=== PATIENT | female | born 1970 | race Caucasian/White ===

== ENCOUNTER → 2017-03-10 | Outpatient (CLI) | payer BC, OTHER | LOC: MAMMO 09:00 | PROVIDERS: ATTEND Family Medicine | DX: Z12.31 Encounter for screening mammogram for malignant neoplasm of breast (principal) | CPT/HCPCS: G0202; G0279 ==

== ENCOUNTER → 2017-03-24 | Outpatient (CLI) | payer OTHER ==
--- NOTE | 2017-03-24 15:24 | US ---
EXAM DESCRIPTION: Breast,Right CLINICAL HISTORY: 47 years Female, screening mammogram showed possible abnormality right breast with focal asymmetry 0.5 to 3 cm behind the nipple at or slightly below the posterior nipple line COMPARISON: March 10, 2017 FINDINGS: Real-time ultrasound right breast performed by me shows no solid, cystic, or worrisome abnormality. This patient has very dense breast tissue which is responsible for the perceived abnormality on the mammogram IMPRESSION: BIRAD CATEGORY: 1 NEGATIVE Electronically signed by: Geovany Meredith MD 03/24/2017 3:23 PM CDT Workstation: [id number]
== END | disposition home or self-care (01) ==
LOC: MAMMO 14:41
PROVIDERS: ATTEND Family Medicine
DX: R92.8 Other abnormal and inconclusive findings on diagnostic imaging of breast (principal)

== ENCOUNTER → 2017-06-23 | Outpatient (CLI) | payer OTHER | END | disposition home or self-care (01) | LOC: LAB.O 08:46 | PROVIDERS: ATTEND Family Medicine | DX: Z79.899 Other long term (current) drug therapy (principal) ==

== ENCOUNTER → 2018-02-25 | Outpatient (CLI) | payer OTHER ==
--- NOTE | 2018-02-25 15:03 | MRI ---
EXAM DESCRIPTION: Lumbar Spine w/o Contrast CLINICAL HISTORY: 48 years Female, LUMBAR SPINE PAIN COMPARISON: None available. TECHNIQUE: Multiplanar multiecho imaging of the lumbar spine was performed without intravenous contrast administration. FINDINGS: The normal lordotic curvature of the lumbar spine is well preserved. The vertebral body heights are well-maintained with no acute compression deformity. Multilevel intervertebral disc space narrowing is noted. The conus medullaris terminates at L1 vertebral body. The visualized spinal cord demonstrates no signal abnormality. L1-L2: Mild bilateral facet arthropathy. No canal stenosis or neural foraminal narrowing. L2-L3: Mild bilateral facet arthropathy. No canal stenosis or neural foraminal narrowing. L3-L4: Mild disc bulge and facet arthropathy. No canal stenosis. Mild right neural foraminal narrowing. L4-L5: Mild disc bulge and facet arthropathy. No canal stenosis. Mild bilateral neural foraminal narrowing. L5-S1: Mild disc bulge and facet arthropathy. No canal stenosis. Mild bilateral neural foraminal narrowing. The visualized prevertebral and paravertebral soft tissues appear unremarkable. IMPRESSION: Diffuse bilateral facet arthropathy throughout the lumbar spine. Mild bilateral neural foraminal narrowing is noted at L4-L5 and L5-S1 levels. Electronically signed by: Justo Javed MD 02/25/2018 3:02 PM CDT
== END ==
LOC: MRI 13:00
PROVIDERS: ATTEND Family Medicine
DX: M54.5 Low back pain (principal)

== ENCOUNTER → 2018-04-13 | Outpatient (CLI) | payer OTHER ==
--- NOTE | 2018-04-14 11:26 | MAM ---
EXAM DESCRIPTION: 3D Screening BILATERAL : Digital Mammography. CLINICAL HISTORY: 48 years Female SCREENING . No complaints. No personal history of breast cancer. Remote family history of breast cancer. Childbirth. IUD. Periods last frequent. Currently on HRT. Lifetime risk of developing breast cancer (Tyrer-Cuzick model) is 7.7 %. COMPARISON: Bilateral screening digital breast tomosynthesis 03/10/2017. Targeted right breast ultrasound 03/24/2017. TECHNIQUE: Bilateral CC and MLO projection full-field images, Digital tomosynthesis mammographic technique. Bilateral digital 2-D full-field MLO images. CAD not utilized. FINDINGS: The breast parenchymal density pattern is: Extremely dense breast tissue, which lowers the sensitivity of mammography. No skin thickening or nipple retraction. Bilateral solitary microcalcifications. No new focal, stellate mass or density, focal asymmetry , and no suspicious microcalcifications bilaterally. Stable mammograms compared to prior study. IMPRESSION: Benign exam BIRAD CATEGORY: 2 BENIGN FINDINGS RECOMMENDATIONS: FOLLOW UP: Routine digital bilateral screening, one year interval from March 2018. Written communication explaining the IMPRESSION and follow-up, will be mailed to the patient and referring health care provider. According to the [employer], yearly mammograms are recommended starting at age 40 and continuing as long as a woman is in good health. Any breast change noted on a breast self-exam should be reported promptly to the patient's healthcare provider. Breast MRI is recommended for women with an approximately 20-25% or greater lifetime risk of breast cancer, including women with a strong family history of breast or ovarian cancer and women who have been treated for Hodgkin's disease. A negative mammographic report should not delay tissue diagnosis in patients with significant clinical history or physical findings. Extremely dense breast tissue limits the sensitivity of digital mammography. Electronically signed by: Enrique Terry MD 04/14/2018 11:25 AM CDT
== END ==
LOC: MAMMO 10:30
PROVIDERS: ATTEND Family Medicine
DX: Z12.31 Encounter for screening mammogram for malignant neoplasm of breast (principal)

== ENCOUNTER → 2018-07-22 | Outpatient (CLI) | payer OTHER ==
--- NOTE | 2018-07-23 09:32 | MRI ---
EXAM: Brain w/wo Contrast CLINICAL HISTORY: HEADACHE COMPARISON STUDY: None. TECHNICAL: Multi-sequence, multiplanar pre and post-contrast MRI images were acquired through the brain. FINDINGS: Diffusion weighted scan shows no abnormal signal intensity suggesting acute ischemic event. There is no visible mass, mass effect, or hemorrhage. No identifiable infarct. The ventricles are non-dilated. No extra-axial fluid collection is present. Normal flow voids are identified. No abnormal enhancing lesion. Posterior fossa midline structures are normal. IMPRESSION: NEGATIVE MRI OF THE BRAIN WITHOUT AND WITH CONTRAST. Electronically signed by: Enrike King MD 07/23/2018 9:31 AM [facility]
== END ==
LOC: MRI 09:00
PROVIDERS: ATTEND Family Medicine
DX: G44.209 Tension-type headache, unspecified, not intractable (principal)

== ENCOUNTER → 2018-12-08 | Outpatient (CLI) | payer OTHER ==
--- NOTE | 2018-12-09 13:31 | MRI ---
EXAM DESCRIPTION: Knee,Left: MRI. CLINICAL HISTORY: 48 years Female KNEE PAIN COMPARISON: Radiograph left knee 12/07/2018.. Left TECHNIQUE: Multiplanar, high-field MRI, multiple sequences, without contrast: Left knee. FINDINGS: Subcortical marrow edema abutting the lateral femoral condyle and the lateral femoral trochlea. Edema in the infrapatellar fat pad. Lateral patellar tilt. Grade 4 osteochondrosis lateral patellar facet. Laxity and edema signal in the median and medial patellofemoral ligaments, also the distal posterior muscle fibers of the medial quadriceps. Edema in the subcutaneous adipose tissue abutting this ligament. Tiny amount of marrow edema in the inferior medial aspect of the patella. Normal signal in the quadriceps tendon and the patellar tendon. Edema abutting the medial retinaculum, from the tendon to the medial femur along its entire length. No osteochondral lesions on the medial patellar facet with the femoral trochlea. Normal signal in the lateral meniscus. Subchondral edema in the outer lateral condyle overlying the meniscus. Normal signal in the subchondral lateral plateau. Normal signal in the medial meniscus. Moderate chondromalacia in the medial compartment cartilage with no subchondral edema. Anterior and posterior cruciate ligaments are intact. Minimal thickening of the medial collateral ligament with edema on the outer and anterior tissues abutting the ligament. Lateral collateral ligament complex is unremarkable. Iliotibial band is intact. IMPRESSION: 1. Lateral patellar dislocation with contusion of the lateral femoral condyle, outer aspect of the lateral femoral trochlea, and contusion of the inferior pole on the medial aspect of the patella. Partial tear of the medial and median patellofemoral ligaments, medial patellar retinaculum. Mild strain of the medial collateral ligament. Mild strain of the distal medial quadriceps muscle. 2. Grade 3 to grade 4 osteochondral lesion in the lateral patellar facet. 3. Mild to moderate chondromalacia in the medial compartment but no subchondral lesions. 4. Medial and lateral menisci, cruciate ligaments and lateral collateral ligament complex are intact. Electronically signed by: Enrique Terry MD 12/09/2018 1:29 PM CDT
== END ==
LOC: MRI 14:07
PROVIDERS: ATTEND Family Medicine
DX: S83.012A Lateral subluxation of left patella, initial encounter (principal); S83.412A Sprain of medial collateral ligament of left knee, initial encounter; M22.42 Chondromalacia patellae, left knee; M22.2X2 Patellofemoral disorders, left knee

== ENCOUNTER → 2020-05-20 | Outpatient (CLI) | payer BC | LOC: LAB.O 11:06 | PROVIDERS: ATTEND Internal Medicine Gastroenterology | DX: K51.919 Ulcerative colitis, unspecified with unspecified complications (principal) ==

== ENCOUNTER → 2020-10-04 | Outpatient (CLI) | payer BC ==
--- NOTE | 2020-10-04 09:34 | US ---
EXAM DESCRIPTION: Gall Bladder: ULTRASOUND. CLINICAL HISTORY: EPIGASTRIC PAIN COMPARISON: None. TECHNIQUE: Transabdominal scanning: Lopez-scale and Doppler modes. FINDINGS: Gallbladder: normal size, shape, echogenicity; no intraluminal stones or sludge. No fluid around the gallbladder. No wall thickening. 1.7 mm Non-tender with transducer pressure. Common bile duct: caliber 3.5 mm within normal limits. Liver: Heterogeneously increased echogenicity; contour liver capsule smooth where seen. No fluid around the liver. Intrahepatic biliary ducts normal caliber. Doppler hepatopedal flow portal vein.. Normal caliber portal vein: 8 mm. Long axis right lobe 13.4 cm Pancreas: normal size Normal echogenicity. Duct not seen. Aorta: Proximal 1.6 cm normal caliber. Right kidney: long axis is 9.7 cm; volume 91.2 mL. Normal cortical thickness and echogenicity. No echogenic stones; no hydronephrosis.. IMPRESSION: 1. Steatosis of the liver with no enlargement. Physiologic vascularity index. Splenic capsule and no ascites. Pancreas is negative. 2. No sonographic abnormalities of the gallbladder. Normal caliber of the common bile duct. Negative findings in the right kidney. Normal caliber of the aorta and proximal IVC. Electronically signed by: Enrique Terry MD 10/04/2020 9:33 AM [facility]
== END ==
LOC: US 07:56
PROVIDERS: ATTEND Internal Medicine Gastroenterology
DX: R10.13 Epigastric pain (principal); K76.0 Fatty (change of) liver, not elsewhere classified